=== PATIENT | male | born 1950 | race Caucasian/White ===

== ENCOUNTER 2018-05-02 08:14 | Emergency (ER) | payer OTHER ==
[~2018-05-02] VITALS: Ht 653.8 cm; Wt 77.2 kg
[2018-05-02 08:15] VITALS: BP 146/83
[2018-05-02] MEDS ORDERED: proparacaine 0.5% ophthalmic drops 15ml EACHEYE ONE (08:30)
[2018-05-02] MEDS ORDERED: HYDR-3965 PO (08:53)
== END 2018-05-02 09:08 | disposition home or self-care (01) ==
LOC: ER 08:14
DX: T15.02XA Foreign body in cornea, left eye, initial encounter (principal); E11.9 Type 2 diabetes mellitus without complications; Z79.899 Other long term (current) drug therapy; X58.XXXA Exposure to other specified factors, initial encounter; Y93.89 Activity, other specified; Y92.89 Other specified places as the place of occurrence of the external cause; Y99.8 Other external cause status
CPT/HCPCS: 65220; 99284

== ENCOUNTER 2019-06-30 15:00 | Emergency (ER) | payer OTHER ==
[~2019-06-30] VITALS: Ht 182.9 cm; Wt 58.2 kg
[2019-06-30 15:15] VITALS: BP 127/82
[2019-06-30] MEDS ORDERED: proparacaine 0.5% ophthalmic drops 15ml EACHEYE ONE (15:55)
[2019-06-30] MEDS ORDERED: ciprofloxacin 0.3% 2.5ml ophthalmic solution RIGHTEYE ONE (16:30)
== END 2019-06-30 16:49 | disposition home or self-care (01) ==
LOC: ER 15:00
DX: T15.01XA Foreign body in cornea, right eye, initial encounter (principal); E11.9 Type 2 diabetes mellitus without complications; F10.99 Alcohol use, unspecified with unspecified alcohol-induced disorder; W22.8XXA Striking against or struck by other objects, initial encounter; Y93.89 Activity, other specified; Y92.89 Other specified places as the place of occurrence of the external cause; Y99.8 Other external cause status; Y90.9 Presence of alcohol in blood, level not specified
CPT/HCPCS: 65205; 65220; 99284